=== PATIENT | male | born 1960 | race Caucasian/White ===

== ENCOUNTER 2018-09-14 17:00 | Outpatient (CLI) | payer OTHER | END 2018-09-14 17:01 | disposition home or self-care (01) | LOC: SLEEPLAB 17:00 | PROVIDERS: ATTEND Family Medicine | DX: G47.33 Obstructive sleep apnea (adult) (pediatric) (principal); R53.83 Other fatigue; I10 Essential (primary) hypertension; R06.83 Snoring; G47.00 Insomnia, unspecified; E66.9 Obesity, unspecified; Z68.45 Body mass index [BMI] 70 or greater, adult | CPT/HCPCS: 95806 ==

== ENCOUNTER 2019-03-19 14:11 | Outpatient (CLI) | payer OTHER ==
--- NOTE | 2019-03-22 11:59 | CT ---
CT CORONARY ARTERY CALCIUM SCORING: (LIMITED CT CHEST WITHOUT IV CONTRAST) DATE: 03/19/19 HISTORY: Hypertension, obesity, pre diabetes, tobacco use. FINDINGS: No coronary artery calcifications are seen. The total coronary artery calcium score is 0. No pericardial or significant pleural effusions are seen. There is no evidence of aneurysmal dilatati on of the thoracic aorta. There are degenerative changes in the spine. IMPRESSION: Total coronary artery calcium score is 0. POS: [facility]
== END 2019-03-19 14:12 | disposition home or self-care (01) ==
LOC: BICCT 14:11
PROVIDERS: ATTEND Family Medicine
DX: I10 Essential (primary) hypertension (principal); E66.9 Obesity, unspecified; R73.09 Other abnormal glucose; Z72.0 Tobacco use
CPT/HCPCS: 75571

== ENCOUNTER 2022-12-19 14:56 | Outpatient (CLI) | payer BC | END 2022-12-19 14:57 | disposition home or self-care (01) | LOC: BICCT 14:56 | PROVIDERS: ATTEND Family Medicine | DX: Z12.2 Encounter for screening for malignant neoplasm of respiratory organs (principal); F17.218 Nicotine dependence, cigarettes, with other nicotine-induced disorders; J98.09 Other diseases of bronchus, not elsewhere classified | CPT/HCPCS: 71271 ==

== ENCOUNTER 2023-03-06 13:00 | Outpatient (CLI) | payer BC | END 2023-03-06 13:01 | disposition home or self-care (01) | LOC: SCSMRI 13:00 | PROVIDERS: ATTEND Neurological Surgery | DX: M48.062 Spinal stenosis, lumbar region with neurogenic claudication (principal); M54.50 Low back pain, unspecified; M47.816 Spondylosis without myelopathy or radiculopathy, lumbar region; E88.2 Lipomatosis, not elsewhere classified | CPT/HCPCS: 72148 ==

== ENCOUNTER 2023-04-09 10:28 | Outpatient (CLI) | payer BC ==
[2023-04-09 13:05] LABS: Anion Gap 18 mmol/L (10-20); BUN (Urea Nitrogen) 17 mg/dL (8.4-25.7); Calc. Creatinine Clearance 0 mL/min (70-130); Calcium 9.9 mg/dL (7.8-10.44); Carbon Dioxide 29 mmol/L (23-31); Chloride 96 mmol/L (98-107); Estimated GFR 77; Glucose 96 mg/dL (80-115); Potassium 4.1 mmol/L (3.5-5.1); Sodium 139 mmol/L (136-145)
== END 2023-04-09 10:29 | disposition home or self-care (01) ==
LOC: LABBT 10:28
PROVIDERS: ATTEND Neurological Surgery
DX: Z01.818 Encounter for other preprocedural examination (principal); M48.061 Spinal stenosis, lumbar region without neurogenic claudication
CPT/HCPCS: 80048; 93005; 93010

== ENCOUNTER 2023-04-13 00:41 | Emergency (ER) | payer BC ==
[2023-04-13 01:34] LABS: #Eosinphils 0.2 thou/uL (0.0-0.7); #Monocytes 0.9 thou/uL (0.11-0.59); %Basophils 0.5 % (0.0-1.0); %Eosinophils 1.9 % (0.0-10.0); %Lymphocytes 7.8 % (21.0-51.0); %Monocytes 9.7 % (0.0-10.0); %Neutrophils 79.8 % (42.0-75.0); Hematocrit 50.4 % (42.0-52.0); Hemoglobin 17.5 g/dL (14.0-18.0); Mean Corpuscular HGB CONC 34.7 g/dL (32.0-36.0); Mean Corpuscular Hemoglobin 33.2 pg (27.0-31.0); Mean Corpuscular Volume 95.6 fl (78.0-98.0); Mean Platelet Volume 10.1 fL (7.4-10.4); Platelet Count 287 10x3/uL (130-400); RBC Distribution Width 12.3 % (11.5-14.5); Red Blood Cell (RBC) Count 5.27 mill/uL (4.70-6.10); White Blood Cell (WBC) Count 8.8 10x3/uL (4.8-10.8)
[2023-04-13 01:42] LABS: Bacteria/HPF None Seen HPF (None Seen); Bilirubin Negative (Negative); Blood, Urine Negative (Negative); CAUTI Indications for Culture Dysuria,urgency,freq; Clarity Clear (Clear); Glucose, Urine (Dipstick) Normal (Negative); Ketone, Urine Negative (Negative); Leukocyte Negative Leu/uL (Negative); Nitrite Negative (Negative); Protein, Urine (Dipstick) 30 mg/dL (Neg-Trace); RBC/HPF 0-3 HPF (0-3); Specific Gravity, Urine 1.032 (1.002-1.036); Squamous Epithelial 0-3 HPF (0-3); WBC/HPF 0-3 HPF (0-3)
[2023-04-13 01:46] LABS: Urine Culture Reflex No No
[2023-04-13 01:59] LABS: ALT (SGPT) 22 U/L (8-55); AST (SGOT) 14 U/L (5-34); Albumin 4.1 g/dL (3.4-4.8); Alkaline Phosphatase 82 U/L (40-110); Anion Gap 14 mmol/L (10-20); BUN (Urea Nitrogen) 16 mg/dL (8.4-25.7); Bilirubin, Total 0.5 mg/dL (0.2-1.2); Calc. Creatinine Clearance 0 mL/min (70-130); Calcium 9.4 mg/dL (7.8-10.44); Carbon Dioxide 26 mmol/L (23-31); Chloride 96 mmol/L (98-107); Estimated GFR 72; Globulin 2.8 g/dL (2.4-3.5); Glucose 117 mg/dL (80-115); Magnesium 1.7 mg/dL (1.6-2.6); Potassium 3.8 mmol/L (3.5-5.1); Protein, Total 6.9 g/dL (5.8-8.1); Sodium 132 mmol/L (136-145)
[2023-04-13 02:01] LABS: Troponin I Less than 0.010 ng/mL (< 0.028)
[2023-04-13 02:17] LABS: SARS-CoV-2 NAA Rapid Test Not Detected (NotDetected)
== END 2023-04-13 04:04 | disposition home or self-care (01) ==
LOC: ERS 00:41
DX: S05.11XA Contusion of eyeball and orbital tissues, right eye, initial encounter (principal); R00.2 Palpitations; J11.1 Influenza due to unidentified influenza virus with other respiratory manifestations; J44.9 Chronic obstructive pulmonary disease, unspecified; E11.9 Type 2 diabetes mellitus without complications; I10 Essential (primary) hypertension; F17.210 Nicotine dependence, cigarettes, uncomplicated; W18.09XA Striking against other object with subsequent fall, initial encounter; Z20.822 Contact with and (suspected) exposure to COVID-19; Z79.84 Long term (current) use of oral hypoglycemic drugs; Z79.899 Other long term (current) drug therapy
CPT/HCPCS: 36415; 70450; 71045; 80053; 81001; 83735; 84484; 85025; 93005

== ENCOUNTER 2023-04-13 09:23 | Emergency (ER) | payer BC ==
[2023-04-13] MEDS ORDERED: Acetaminophen 500 MG TAB ONE (09:44)
[2023-04-13] MEDS ORDERED: Ketorolac Tromethamine 30 MG/ML VIAL ONE (09:44)
[2023-04-13 10:12] LABS: #Basophils 0.1 thou/uL (0.0-0.2); #Monocytes 1.2 thou/uL (0.11-0.59); #Neutrophils 8.2 thou/uL (1.40-6.50); %Basophils 0.5 % (0.0-1.0); %Eosinophils 0.4 % (0.0-10.0); %Lymphocytes 6.1 % (21.0-51.0); %Monocytes 11.6 % (0.0-10.0); Hemoglobin 17.4 g/dL (14.0-18.0); Mean Corpuscular HGB CONC 34.8 g/dL (32.0-36.0); Mean Corpuscular Hemoglobin 33.3 pg (27.0-31.0); Mean Corpuscular Volume 95.6 fl (78.0-98.0); Mean Platelet Volume 10.4 fL (7.4-10.4); Platelet Count 269 10x3/uL (130-400); RBC Distribution Width 12.3 % (11.5-14.5); Red Blood Cell (RBC) Count 5.23 mill/uL (4.70-6.10); White Blood Cell (WBC) Count 10.1 10x3/uL (4.8-10.8)
[2023-04-13 10:37] LABS: ALT (SGPT) 25 U/L (8-55); AST (SGOT) 20 U/L (5-34); Albumin 4.2 g/dL (3.4-4.8); Alkaline Phosphatase 84 U/L (40-110); Anion Gap 15 mmol/L (10-20); BUN (Urea Nitrogen) 14 mg/dL (8.4-25.7); Bilirubin, Total 0.5 mg/dL (0.2-1.2); Calc. Creatinine Clearance 0 mL/min (70-130); Calcium 9.4 mg/dL (7.8-10.44); Carbon Dioxide 27 mmol/L (23-31); Chloride 96 mmol/L (98-107); Estimated GFR 83; Globulin 2.7 g/dL (2.4-3.5); Glucose 103 mg/dL (80-115); Magnesium 1.8 mg/dL (1.6-2.6); Protein, Total 6.9 g/dL (5.8-8.1); Sodium 134 mmol/L (136-145)
[2023-04-13 10:41] LABS: Troponin I Less than 0.010 ng/mL (< 0.028)
== END 2023-04-13 11:16 | disposition home or self-care (01) ==
LOC: ERS 09:23
DX: J10.1 Influenza due to other identified influenza virus with other respiratory manifestations (principal); I10 Essential (primary) hypertension; J44.9 Chronic obstructive pulmonary disease, unspecified; E11.9 Type 2 diabetes mellitus without complications; F17.210 Nicotine dependence, cigarettes, uncomplicated; Z79.84 Long term (current) use of oral hypoglycemic drugs; Z79.899 Other long term (current) drug therapy
CPT/HCPCS: 36415; 70450; 71045; 80053; 81001; 83735; 84484; 85025; 93005; 96374; J1885

== ENCOUNTER 2023-04-16 06:17 | Day surgery (SDC) | payer BC ==
[2023-04-09 11:27] VITALS: BMI 36.6
[2023-04-16] MEDS ORDERED: Thrombin 5000 UNITS/5 ML VIAL ONE (06:25)
[2023-04-16] MEDS ORDERED: EPINEPHrine 1 MG/ML VIAL ONE (06:25)
[2023-04-16] MEDS ORDERED: Bupivacaine PF 0.5% 30 ML VIAL ONE (06:26)
[2023-04-16] MEDS ORDERED: PROPOFOL 20 ML ONE (07:08)
[2023-04-16] MEDS ORDERED: Rocuronium Bromide 10 MG/ML (10ML VIAL) ONE ×2 (07:10→08:15)
[2023-04-16] MEDS ORDERED: Lidocaine 1% PF 5 ML VIAL ONE ×2 (07:10→08:15)
[2023-04-16] MEDS ORDERED: Lidocaine 1% MPF 2 ML VIAL ONE (07:17)
[2023-04-16] MEDS ORDERED: CEFAZOLIN 2 GM VIAL ONE ×2 (07:18→11:15)
[2023-04-16] MEDS ORDERED: Sodium Chloride 0.9% 100 ML ONE ×2 (07:18→11:15)
[2023-04-16] MEDS ORDERED: Midazolam HCl 2 mg/2 ml Vial ONE (07:57)
[2023-04-16] MEDS ORDERED: Famotidine/PF 20 mg/2ml Vial ONE (07:58)
[2023-04-16] MEDS ORDERED: fentaNYL PF 100 MCG/2 ML SYRINGE ONE (08:01)
[2023-04-16] MEDS ORDERED: Ondansetron PF 4 MG/2 ML Vial ONE ×2 (08:15→09:31)
[2023-04-16] MEDS ORDERED: Labetalol HCl 100 MG/20 ML VIAL ONE (08:15)
[2023-04-16] MEDS ORDERED: Dexamethasone 20 MG/5 ML VIAL ONE (08:15)
[2023-04-16] MEDS ORDERED: PHENYLEPHRINE-NS 100 MCG/ML 10 ML SYRINGE ONE ×2 (08:15→09:42)
[2023-04-16] MEDS ORDERED: Albuterol HFA (OR) 200 PUFF INH ONE ×2 (08:15→08:19)
[2023-04-16] MEDS ORDERED: PROPOFOL 200 MG/20 ML VIAL ONE (08:15)
[2023-04-16] MEDS ORDERED: hydrALAZINE 20 MG/ML VIAL ONE (08:45)
[2023-04-16] MEDS ORDERED: Dexmedetomidine 200 MCG/2 ML VIAL ONE (09:07)
[2023-04-16] MEDS ORDERED: Dexamethasone 4 mg/ml Vial ONE (09:31)
[2023-04-16] MEDS ORDERED: SUGAMMADEX SODIUM 200 MG/2 ML VIAL ONE (09:31)
[2023-04-16] MEDS ORDERED: MINERAL OIL/WHITE PETROLATUM 3.5 GM TUBE ONE (09:33)
[2023-04-16] MEDS ORDERED: Tamsulosin HCl 0.4 MG CAP ONE (10:14)
[2023-04-16] MEDS ORDERED: HYDROcodone/Acetaminophen 5/325 mg Tablet ONE (11:04)
== END 2023-04-16 12:08 | disposition home or self-care (01) ==
LOC: SDC 06:17
PROVIDERS: ATTEND Neurological Surgery
PROC: 01NB0ZZ Release Lumbar Nerve, Open Approach (ICD-10-PCS; principal; 2023-04-16)
PROC: 01NR0ZZ Release Sacral Nerve, Open Approach (ICD-10-PCS; principal; 2023-04-16)
DX: M48.062 Spinal stenosis, lumbar region with neurogenic claudication (principal); E88.2 Lipomatosis, not elsewhere classified; J44.9 Chronic obstructive pulmonary disease, unspecified; I10 Essential (primary) hypertension; R73.03 Prediabetes; Z79.84 Long term (current) use of oral hypoglycemic drugs; Z79.899 Other long term (current) drug therapy
CPT/HCPCS: J0171; J0360; J1100; J2250; J2405; J2704; J3490; S0020; S0028

== ENCOUNTER 2023-09-09 11:51 | Outpatient (CLI) | payer BC | END 2023-09-09 11:52 | disposition home or self-care (01) | LOC: BICRAD 11:51 → RAD 11:52 | PROVIDERS: ATTEND Neurological Surgery | DX: M54.50 Low back pain, unspecified (principal); M47.816 Spondylosis without myelopathy or radiculopathy, lumbar region | CPT/HCPCS: 72120 ==

== ENCOUNTER 2023-10-30 13:12 | Outpatient (CLI) | payer BC | END 2023-10-30 13:13 | disposition home or self-care (01) | LOC: BICCT 13:12 | PROVIDERS: ATTEND Neurological Surgery | DX: R29.818 Other symptoms and signs involving the nervous system (principal); Z98.890 Other specified postprocedural states | CPT/HCPCS: 72131 ==

== ENCOUNTER 2023-11-07 10:47 | Outpatient (CLI) | payer BC ==
[2023-11-07 12:55] LABS: Anion Gap 17 mmol/L (10-20); BUN (Urea Nitrogen) 15 mg/dL (8.4-25.7); Calc. Creatinine Clearance 0 mL/min (70-130); Calcium 9.8 mg/dL (7.8-10.44); Carbon Dioxide 26 mmol/L (23-31); Chloride 101 mmol/L (98-107); Estimated GFR 88; Glucose 88 mg/dL (80-115); Potassium 4.5 mmol/L (3.5-5.1); Sodium 139 mmol/L (136-145)
== END 2023-11-07 10:48 | disposition home or self-care (01) ==
LOC: LABBT 10:47
PROVIDERS: ATTEND Neurological Surgery
DX: Z01.818 Encounter for other preprocedural examination (principal); M43.16 Spondylolisthesis, lumbar region
CPT/HCPCS: 80048; 93005; 93010

== ENCOUNTER 2024-03-31 11:30 | Emergency (ER) | payer BC ==
[2024-03-31] MEDS ORDERED: Proparacaine 0.5% Opth 15 ML BOT ONE (12:10)
[2024-03-31] MEDS ORDERED: Fluorescein Opthalmic Strip ONE (12:10)
== END 2024-03-31 12:21 | disposition home or self-care (01) ==
LOC: ERS 11:30
DX: S09.90XA Unspecified injury of head, initial encounter (principal); B02.9 Zoster without complications; I10 Essential (primary) hypertension; E11.9 Type 2 diabetes mellitus without complications; F17.210 Nicotine dependence, cigarettes, uncomplicated; Z79.84 Long term (current) use of oral hypoglycemic drugs; Z79.899 Other long term (current) drug therapy; W01.198A Fall on same level from slipping, tripping and stumbling with subsequent striking against other object, initial encounter; Y93.01 Activity, walking, marching and hiking; Y92.009 Unspecified place in unspecified non-institutional (private) residence as the place of occurrence of the external cause
CPT/HCPCS: 70450; 72125